=== PATIENT | male | born 1995 | race Caucasian/White ===

== ENCOUNTER → 2016-09-16 | Outpatient (CLI) | payer MEDICAID, OTHER ==
--- NOTE | 2016-09-16 15:52 | REP ---
MRI BRAIN WITHOUT AND WITH CONTRAST: HISTORY: Ataxia. CONTRAST: ProHance 12 mL. COMPARISON: 01/14/2011 There are no areas of abnormal signal intensity in the brain parenchyma. There is no intraparenchymal hemorrhage, infarct, mass or midline shift. There is no abnormal enhancement with contrast. A small developmental venous anomaly is present in the right parietal lobe. An arachnoid cyst is present in the left middle cranial fossa superior to the left parahippocampal gyrus and body of the hippocampus. There is mild mass effect on the left parahippocampal gyrus and body of the left hippocampus. There is posterior extension of the cyst into the left ambient cistern. The cyst measures 2 cm in transverse by 2.1 cm in AP x 1.1 cm in cephalocaudal dimensions and is unchanged in size compared to the previous study. There is no subdural fluid collection. The visualized sinuses are clear. IMPRESSION: 1. Left middle cranial fossa arachnoid cyst, unchanged in size compared to the previous study. 2. Small right parietal lobe developmental venous anomaly. Signed by Jesse Shankar MD 09/16/2016 03:53 P
--- NOTE | 2016-09-16 15:53 | REP ---
MR CERVICAL SPINE WITHOUT AND WITH CONTRAST: HISTORY: Ataxia. CONTRAST: ProHance 12 mL. There is no disc bulge or herniation. The spinal canal and the neural foramina are patent. The spinal cord is normal in signal intensity. There is no abnormal enhancement. Normal signal intensity is present in the cervical vertebral bodies. IMPRESSION: Normal study. Signed by Jesse Shankar MD 09/16/2016 03:54 P
--- NOTE | 2016-09-16 15:53 | REP ---
MRI THORACIC SPINE WITHOUT AND WITH CONTRAST: HISTORY: Ataxia. CONTRAST: ProHance 12 mL. The examination is limited secondary to motion. There is no disc bulge or herniation. The spinal canal and the neural foramina are patent. The spinal cord is normal in signal intensity. There is no abnormal enhancement. Normal signal intensity is present in the thoracic vertebral bodies. IMPRESSION: Normal study. Signed by Jesse Sahnkar MD 09/16/2016 03:53 P
== END ==
LOC: M RAD 12:48
PROVIDERS: ATTEND Psychiatry & Neurology Neurology
DX: R27.0 Ataxia, unspecified (principal)

== ENCOUNTER 2018-02-21 14:04 | Emergency (ER) | payer OTHER ==
[~2018-02-21] VITALS: Ht 165.1 cm; Wt 59.8 kg
[2018-02-21 14:56] LABS: BASO % 0.3 % (0.0-1.0); HEMATOCRIT 44.8 % (42.0-52.0); HEMOGLOBIN 16.1 g/dl (13.5-17.5); LYMPH % 10.8 % (24.0-44.0); MEAN CORPUSCULAR HEMOGLOBIN 29.8 pg (27.0-33.0); MEAN CORPUSCULAR HGB CONC 35.9 g/dl (32.0-36.5); MONO # 0.7 10^3/uL (0.0-0.8); MONO % 7.2 % (0.0-5.0); NEUTROPHILS # 7.8 10^3/uL (1.8-7.7); NEUTROPHILS % 81.4 % (36.0-66.0); PLATELET COUNT, AUTOMATED 334 10^3/uL (150-450); WHITE BLOOD COUNT 9.6 10^3/uL (4.0-10.0)
[2018-02-21] MEDS ORDERED: NS 1,000 ML IV ONE (15:15)
[2018-02-21] MEDS ORDERED: ONDANSETRON 4MG/2ML VIAL (J2405) IV ONE (15:15)
[2018-02-21 15:18] LABS: ALBUMIN 4.6 GM/DL (3.2-5.2); ALT/SGPT 23 U/L (12-78); AMYLASE 57 U/L (25-115); BILIRUBIN,DIRECT 0.2 MG/DL (0.0-0.2); BILIRUBIN,TOTAL 0.6 MG/DL (0.2-1.0); BLOOD UREA NITROGEN 17 MG/DL (7-18); CALCIUM LEVEL 9.6 MG/DL (8.5-10.1); CARBON DIOXIDE LEVEL 25 MEQ/L (21-32); CHLORIDE LEVEL 105 MEQ/L (98-107); CREATININE FOR GFR 1.16 MG/DL (0.70-1.30); GLOMERULAR FILTRATION RATE > 60.0 (>60); GLUCOSE, FASTING 98 MG/DL (70-100); LIPASE 47 U/L (73-393); POTASSIUM SERUM 4.2 MEQ/L (3.5-5.1); SODIUM LEVEL 140 MEQ/L (136-145)
--- NOTE | 2018-02-21 15:28 | REP ---
KUB, ONE VIEW: HISTORY: Abdominal pain. A small amount of air is present in small and large intestine. There are no air-fluid levels or dilated loops of intestine. There is no pneumoperitoneum. A mild amount of stool is present in the colon. There is spina bifida occulta of S1. IMPRESSION: 1. Nonspecific bowel gas pattern. 2. There is a mild amount of stool in the colon. Electronically Signed by Jesse Shankar MD 02/21/2018 04:01 P
[2018-02-21] MEDS ORDERED: ACETAMINOPHEN 325 MG TAB PO ONE (16:00)
[2018-02-21] MEDS ORDERED: ZOFR4TAB14 PO (17:04)
--- NOTE | 2018-02-21 18:10 | REPVR ---
EXAM: CT Head Without Contrast EXAM DATE/TIME: 02/21/2018 5:16 PM CLINICAL HISTORY: 22 years old, male; Pain; Headache; Headache not specified; Prior surgery; Surgery date: 6+ months; Additional info: Headache, HX glioblastoma (tx remotely) cysts of the brain TECHNIQUE: Axial computed tomography images of the head/brain without contrast. All CT scans at this facility use at least one of these dose optimization techniques: automated exposure control; mA and/or kV adjustment per patient size (includes targeted exams where dose is matched to clinical indication); or iterative reconstruction. COMPARISON: MRI-Brain W/O FOLL BY WITH 09/16/2016 1:04 PM FINDINGS: Brain: There is a CSF-density lesion in the left middle cranial fossa, with extension to the ambient cistern. These findings likely represent an arachnoid cyst and are unchanged from the prior MRI. There is no intracranial hemorrhage, edema or extra-axial fluid collection. Ventricles: Normal. No ventriculomegaly. Bones/joints: Unremarkable. Sinuses: Normal as visualized. No acute sinusitis. Mastoid air cells: Normal as visualized. No mastoid effusion. Soft tissues: Normal. IMPRESSION: 1. No acute intracranial abnormality. 2. Stable appearance of a presumed left middle cranial fossa arachnoid cyst. Electronically signed by: Kimi Grewal On 02/21/2018 18:09:50 PM
[2018-02-21 18:11] VITALS: BP 108/51
[2018-02-21] MEDS ORDERED: KETOROLAC 30 MG/ML VIAL (J1885) IV ONE (18:30)
--- NOTE | 2018-02-24 09:27 | ED PDOC ---
Post-Departure Follow-Up certified letter sent to pt re formal read of ct head. needs fu. obtain pcp name and fax if so. refer to [facility] and fax there is no pcp Brenton Sosa MD Feb 24, 2018 09:27
== END 2018-02-21 18:54 | disposition home or self-care (01) ==
LOC: M ED 14:04
DX: A08.4 Viral intestinal infection, unspecified (principal); R62.50 Unspecified lack of expected normal physiological development in childhood
CPT/HCPCS: 36415; 70450; 74018; 80048; 80076; 82150; 83690; 85025; 96374; 96375; 99284; J1885; J2405

== ENCOUNTER 2018-04-12 15:43 | Emergency (ER) | payer OTHER ==
[~2018-04-12] VITALS: Ht 165.1 cm; Wt 59.3 kg
[~2018-04-12 15:43] MED LIST: ZOFR4TAB14 PO
[2018-04-12 15:44] VITALS: BP 120/78
[2018-04-12] MEDS ORDERED: PROP40SO (15:48)
--- NOTE | 2018-04-12 16:48 | REP ---
Left thumb four view : There is no fracture or dislocation. Mineralization and joint spaces are normal. There are no calcifications or foreign bodies. Impression: Negative left . Electronically Signed by Jeffrey Moulton MD 04/12/2018 04:40 P
== END 2018-04-12 16:51 | disposition home or self-care (01) ==
LOC: M ED 15:43
DX: S61.002A Unspecified open wound of left thumb without damage to nail, initial encounter (principal); W26.8XXA Contact with other sharp object(s), not elsewhere classified, initial encounter; Y92.009 Unspecified place in unspecified non-institutional (private) residence as the place of occurrence of the external cause; Y93.9 Activity, unspecified; Y99.9 Unspecified external cause status

== ENCOUNTER 2018-10-22 10:05 | Emergency (ER) | payer OTHER ==
[~2018-10-22] VITALS: Ht 165.1 cm; Wt 63.3 kg
[~2018-10-22 10:05] MED LIST changes: +PROP40SO
[2018-10-22 10:06] VITALS: BP 134/74
[2018-10-22] MEDS ORDERED: VALP250S (10:11)
[2018-10-22 10:52] LABS: BASO % 0.2 % (0.0-1.0); HEMATOCRIT 40.4 % (42.0-52.0); HEMOGLOBIN 14.1 g/dl (13.5-17.5); LYMPH # 0.9 10^3/uL (1.5-5.0); MEAN CORPUSCULAR HEMOGLOBIN 29.8 pg (27.0-33.0); MEAN CORPUSCULAR HGB CONC 34.9 g/dl (32.0-36.5); MEAN CORPUSCULAR VOLUME 85.4 fl (80.0-96.0); MONO # 1.3 10^3/uL (0.0-0.8); MONO % 8.9 % (0.0-5.0); NEUTROPHILS # 12.6 10^3/uL (1.5-8.5); NEUTROPHILS % 84.5 % (36.0-66.0); PLATELET COUNT, AUTOMATED 290 10^3/uL (150-450); RED BLOOD COUNT 4.73 10^6/uL (4.30-6.10)
[2018-10-22 11:10] LABS: MONO SCRN NEGATIVE (NEGATIVE)
[2018-10-22] MEDS ORDERED: KEFL500C17 PO (11:13)
== END 2018-10-22 11:20 | disposition home or self-care (01) ==
LOC: M ED 10:05
DX: J03.90 Acute tonsillitis, unspecified (principal); Z79.899 Other long term (current) drug therapy

== ENCOUNTER → 2019-02-05 | Outpatient (REF) | payer OTHER, MEDICAID ==
[~2019-02-05] MED LIST changes: +KEFL500C17 PO; +VALP250S
[2019-02-05 11:49] LABS: BASO % 0.3 % (0.0-1.0); HEMATOCRIT 45.1 % (42.0-52.0); HEMOGLOBIN 14.9 g/dl (13.5-17.5); LYMPH # 1.3 10^3/uL (1.5-5.0); LYMPH % 19.4 % (24.0-44.0); MEAN CORPUSCULAR HEMOGLOBIN 28.7 pg (27.0-33.0); MEAN CORPUSCULAR VOLUME 86.9 fl (80.0-96.0); MONO # 0.7 10^3/uL (0.0-0.8); MONO % 10.1 % (0.0-5.0); NEUTROPHILS # 4.8 10^3/uL (1.5-8.5); NEUTROPHILS % 69.9 % (36.0-66.0); PLATELET COUNT, AUTOMATED 345 10^3/uL (150-450); RED BLOOD COUNT 5.19 10^6/uL (4.30-6.10); WHITE BLOOD COUNT 6.8 10^3/uL (4.0-10.0)
[2019-02-05 12:40] LABS: ALBUMIN 3.9 GM/DL (3.2-5.2); ALT/SGPT 26 U/L (12-78); BILIRUBIN,DIRECT < 0.1 MG/DL (0.0-0.2); BILIRUBIN,TOTAL 0.2 MG/DL (0.2-1.0); BLOOD UREA NITROGEN 9 MG/DL (7-18); CALCIUM LEVEL 9.8 MG/DL (8.5-10.1); CARBON DIOXIDE LEVEL 26 MEQ/L (21-32); CHLORIDE LEVEL 103 MEQ/L (98-107); CHOLESTEROL LEVEL 133 MG/DL (<200); CREATININE FOR GFR 0.94 MG/DL (0.70-1.30); GLOMERULAR FILTRATION RATE > 60.0 (>60); GLUCOSE, FASTING 73 MG/DL (70-100); HDL CHOLESTEROL 50 MG/DL (>40); LDL CHOLESTEROL 68 MG/DL (<100); NON-HDL-C 83 MG/DL; POTASSIUM SERUM 4.3 MEQ/L (3.5-5.1); SODIUM LEVEL 138 MEQ/L (136-145); TOTAL PROTEIN 7.5 GM/DL (6.4-8.2); TRIGLYCERIDES LEVEL 75 MG/DL (<150); VALPROIC ACID (DEPAKOTE) 70.3 UG/ML (50.0-100.0)
== END ==
LOC: M LABDRAW1 10:43
PROVIDERS: ATTEND Psychiatry & Neurology Psychiatry
DX: F63.81 Intermittent explosive disorder (principal); F79 Unspecified intellectual disabilities

== ENCOUNTER 2019-03-12 15:42 | Emergency (ER) | payer MEDICAID, OTHER ==
[~2019-03-12] VITALS: Ht 165.1 cm; Wt 72.7 kg
[2019-03-12 15:42] VITALS: BP 128/80
[~2019-03-12 15:42] MED LIST changes: -VALP250S; +VALP250S PO
[2019-03-12] MEDS ORDERED: ARIP1TAB PO (15:50)
[2019-03-12] MEDS ORDERED: CIPR-249 PO (17:37)
[2019-03-12] MEDS ORDERED: CIPROFLOXACIN 500 MG TAB PO ONE (18:00)
[2019-03-12 18:48] LABS: CHLAMYDIA DNA AMPLIFICATION NEGATIVE (NEGATIVE); GC DNA AMPLIFICATION NEGATIVE (NEGATIVE)
== END 2019-03-12 18:09 | disposition home or self-care (01) ==
LOC: M ED 15:42
DX: N30.90 Cystitis, unspecified without hematuria (principal); G90.2 Horner's syndrome

== ENCOUNTER → 2020-05-02 | Outpatient (CLI) | payer OTHER ==
[~2020-05-02] MED LIST changes: +ARIP1TAB PO; +CIPR-249 PO
[2020-05-02 17:25] LABS: ALBUMIN 3.9 GM/DL (3.2-5.2); ALT/SGPT 25 U/L (12-78); BILIRUBIN,TOTAL 0.3 MG/DL (0.2-1.0); BLOOD UREA NITROGEN 13 MG/DL (7-18); CALCIUM LEVEL 9.2 MG/DL (8.5-10.1); CARBON DIOXIDE LEVEL 28 MEQ/L (21-32); CHLORIDE LEVEL 106 MEQ/L (98-107); CREATININE FOR GFR 1.19 MG/DL (0.70-1.30); GLOMERULAR FILTRATION RATE > 60.0 (>60); GLUCOSE, FASTING 83 MG/DL (70-100); POTASSIUM SERUM 4.3 MEQ/L (3.5-5.1); SODIUM LEVEL 138 MEQ/L (136-145); TOTAL PROTEIN 6.9 GM/DL (6.4-8.2)
== END ==
LOC: M LAB 16:04
PROVIDERS: ATTEND Psychiatry & Neurology Neurology
DX: G93.0 Cerebral cysts (principal)

== ENCOUNTER → 2020-05-09 | Outpatient (CLI) | payer OTHER ==
--- NOTE | 2020-05-09 15:16 | REPVR ---
PROCEDURE INFORMATION: Exam: MR Head Without and With Contrast Exam date and time: 05/09/2020 2:25 PM Age: 24 years old Clinical indication: Other: HX malig junaid of endocrine glands, cerebral cysts TECHNIQUE: Imaging protocol: MR of the head without and with intravenous contrast. Contrast material: PROHANCE; Contrast volume: 14 ml; Contrast route: INTRAVENOUS (IV); COMPARISON: MRI-Brain W/O FOLL BY WITH 09/16/2016 1:04 PM FINDINGS: Brain: There is a stable 1.5 cm presumed arachnoid cyst interposed between the medial margin of the left temporal lobe and left cerebral peduncle, reported previously. There is a stable right parietal developmental venous anomaly, reported previously. Cerebral ventricles: Normal. No ventriculomegaly. Bones/joints: Unremarkable. Paranasal sinuses: Normal as visualized. No acute sinusitis. Mastoid air cells: Normal as visualized. No mastoid effusion. Orbital cavity: Unremarkable. Soft tissues: Unremarkable. IMPRESSION: 1. There is a stable 1.5 cm presumed arachnoid cyst interposed between the medial margin of the left temporal lobe and left cerebral peduncle, reported previously. 2. There is a stable right parietal developmental venous anomaly, reported previously. Electronically signed by: Miguel Harrison On 05/09/2020 15:16:42 PM
--- NOTE | 2020-05-09 15:26 | REPVR ---
PROCEDURE INFORMATION: Exam: MR Cervical Spine Without and With Contrast Exam date and time: 05/09/2020 2:25 PM Age: 24 years old Clinical indication: Neck pain; Additional info: HX malig junaid of endocrine glands, cerebral cysts TECHNIQUE: Imaging protocol: Multiplanar magnetic resonance images of the cervical spine without and with contrast. Contrast material: PROHANCE; Contrast volume: 14 ml; Contrast route: INTRAVENOUS (IV); COMPARISON: MRI-C SPINE W/O FOLL BY WITH 09/16/2016 1:20 PM FINDINGS: Vertebrae: Unremarkable. Spinal cord: Normal signal. No cord compression. C2-C3: No significant disc disease. No significant spinal stenosis. C3-C4: No significant disc disease. No significant spinal stenosis. C4-C5: No significant disc disease. No significant spinal stenosis. C5-C6: No significant disc disease. No significant spinal stenosis. C6-C7: No significant disc disease. No significant spinal stenosis. C7-T1: No significant disc disease. No significant spinal stenosis. Soft tissues: Unremarkable. Other findings: Examination is limited due to patient body habitus and technique. IMPRESSION: Examination is limited due to patient body habitus and technique. Within the limitations of this exam, no acute abnormalities are identified. Electronically signed by: Miguel Harrison On 05/09/2020 15:26:18 PM
== END ==
LOC: M PLARAD 09:55
PROVIDERS: ATTEND Psychiatry & Neurology Neurology
DX: G93.0 Cerebral cysts (principal); Z85.858 Personal history of malignant neoplasm of other endocrine glands

== ENCOUNTER → 2020-05-11 | Outpatient (CLI) | payer OTHER ==
--- NOTE | 2020-05-11 17:26 | REPVR ---
PROCEDURE INFORMATION: Exam: MR Lumbar Spine Without and With Contrast. Exam date and time: 05/11/2020 2:05 PM Age: 24 years old Clinical indication: Other: HX malig junaid of endocrine glands, cerebral cysts TECHNIQUE: Imaging protocol: Multiplanar magnetic resonance images of the lumbar spine without and with contrast. Contrast material: PROHANCE; Contrast volume: 14 ml; Contrast route: INTRAVENOUS (IV); COMPARISON: No relevant prior studies available. FINDINGS: Vertebrae: Unremarkable. Spinal cord: The conus medullaris is normal appearance at the L2 level. L1-L2: No significant disc disease. No significant spinal canal stenosis. No neural foraminal stenosis. L2-L3: No significant disc disease. No significant spinal canal stenosis. No neural foraminal stenosis. L3-L4: No significant disc disease. No significant spinal canal stenosis. No neural foraminal stenosis. L4-L5: No significant disc disease. No significant spinal canal stenosis. No neural foraminal stenosis. L5-S1: No significant disc disease. No significant spinal canal stenosis. No neural foraminal stenosis. Soft tissues: No epidural lesions. No abnormal contrast enhancement. IMPRESSION: Normal appearance of the lumbar spine. No evidence of metastatic disease. Electronically signed by: Stephanie Reyes On 05/11/2020 17:26:02 PM
--- NOTE | 2020-05-11 17:40 | REPVR ---
PROCEDURE INFORMATION: Exam: MR Thoracic Spine Without and With Contrast Exam date and time: 05/11/2020 2:02 PM Age: 24 years old Clinical indication: Other: HX malig junaid of endocrine glands, cerebral cysts TECHNIQUE: Imaging protocol: Multiplanar magnetic resonance images of the thoracic spine without and with contrast. Contrast material: PROHANCE; Contrast volume: 14 ml; Contrast route: INTRAVENOUS (IV); COMPARISON: MRI-T SPINE W/O FOLL WITH CON 09/16/2016 1:42 PM FINDINGS: Vertebrae: Unremarkable. Spinal cord: Normal signal. No cord compression. Discs/Spinal canal/Neural foramina: No significant disc disease. No significant spinal canal stenosis. Soft tissues: There is 1 focus of enhancement in the epidural soft tissues dorsal aspect of the thoracic spinal canal at the T11-T12 level series 12, image 9 which has the appearance of normal epidural fat on the accompanying axial series 13, image 17. IMPRESSION: Normal appearance of the thoracic spine. One focus of enhancement is seen in the dorsal epidural spinal canal which most likely represents normal adipose tissue however it does appear to enhance on the post gadolinium sequences and could be assessed at a follow-up. It is at the T11-T12. Electronically signed by: Stephanie Reyes On 05/11/2020 17:39:50 PM
== END ==
LOC: M PLARAD 10:08
PROVIDERS: ATTEND Psychiatry & Neurology Neurology
DX: G93.0 Cerebral cysts (principal); Z85.858 Personal history of malignant neoplasm of other endocrine glands

== ENCOUNTER → 2020-08-25 | Outpatient (CLI) | payer OTHER, MEDICAID ==
[~2020-08-25] MED LIST changes: +ARIP10TA32 PO; -ARIP1TAB PO
[2020-08-25 17:26] LABS: BASO % 0.4 % (0.0-1.0); HEMATOCRIT 44.8 % (42.0-52.0); HEMOGLOBIN 15.6 g/dl (13.5-17.5); LYMPH # 1.6 10^3/uL (1.5-5.0); MEAN CORPUSCULAR HEMOGLOBIN 28.9 pg (27.0-33.0); MEAN CORPUSCULAR HGB CONC 34.8 g/dl (32.0-36.5); MONO # 0.7 10^3/uL (0.0-0.8); MONO % 8.5 % (2.0-8.0); NEUTROPHILS # 5.6 10^3/uL (1.5-8.5); NEUTROPHILS % 70.7 % (36.0-66.0); PLATELET COUNT, AUTOMATED 275 10^3/uL (150-450); WHITE BLOOD COUNT 7.9 10^3/uL (4.0-10.0)
[2020-08-25 17:55] LABS: ALBUMIN 4.6 GM/DL (3.2-5.2); ALT/SGPT 26 U/L (12-78); BILIRUBIN,DIRECT 0.2 MG/DL (0.0-0.2); BILIRUBIN,TOTAL 0.7 MG/DL (0.2-1.0); BLOOD UREA NITROGEN 13 MG/DL (7-18); CALCIUM LEVEL 9.1 MG/DL (8.5-10.1); CARBON DIOXIDE LEVEL 27 MEQ/L (21-32); CHLORIDE LEVEL 103 MEQ/L (98-107); CHOLESTEROL LEVEL 143 MG/DL (<200); CHOLESTEROL RISK RATIO 3.108 (<5); CREATININE FOR GFR 1.19 MG/DL (0.70-1.30); GLOMERULAR FILTRATION RATE > 60.0 (>60); GLUCOSE, FASTING 89 MG/DL (70-100); HDL CHOLESTEROL 46 MG/DL (>40); LDL CHOLESTEROL 79 MG/DL (<100); NON-HDL-C 97 MG/DL; POTASSIUM SERUM 4.2 MEQ/L (3.5-5.1); SODIUM LEVEL 136 MEQ/L (136-145); TOTAL PROTEIN 7.9 GM/DL (6.4-8.2); TRIGLYCERIDES LEVEL 90 MG/DL (<150)
[2020-08-25 18:18] LABS: HEMOGLOBIN A1c 4.6 %
[2020-08-28 11:12] LABS: PROLACTIN 32.7 NG/ML (2.1-17.7)
== END ==
LOC: M PLALAB 14:12
PROVIDERS: ATTEND Psychiatry & Neurology Psychiatry
DX: F63.81 Intermittent explosive disorder (principal); F06.0 Psychotic disorder with hallucinations due to known physiological condition

== ENCOUNTER → 2020-11-14 | Outpatient (CLI) | payer OTHER, MEDICAID ==
[2020-11-14 18:22] LABS: VALPROIC ACID (DEPAKOTE) < 3.0 UG/ML (50.0-100.0)
== END ==
LOC: M LAB 16:54
PROVIDERS: ATTEND Psychiatry & Neurology Psychiatry
DX: G43.909 Migraine, unspecified, not intractable, without status migrainosus (principal)

== ENCOUNTER 2021-03-25 16:49 | Inpatient (IN) | payer OTHER, MEDICAID ==
[~2021-03-25] VITALS: Ht 172.7 cm; Wt 75.4 kg
[2021-03-25] MEDS: NS 1,000 ML IV SCH (17:50)
[2021-03-25 18:11] LABS: BASO % 0.2 % (0.0-1.0); HEMATOCRIT 41.5 % (42.0-52.0); HEMOGLOBIN 14.1 g/dl (13.5-17.5); LYMPH # 1.3 10^3/uL (1.5-5.0); MEAN CORPUSCULAR HEMOGLOBIN 28.3 pg (27.0-33.0); MEAN CORPUSCULAR VOLUME 83.2 fl (80.0-96.0); MONO # 0.7 10^3/uL (0.0-0.8); MONO % 5.4 % (2.0-8.0); NEUTROPHILS # 10.6 10^3/uL (1.5-8.5); NEUTROPHILS % 83.9 % (36.0-66.0); PLATELET COUNT, AUTOMATED 289 10^3/uL (150-450); RED BLOOD COUNT 4.99 10^6/uL (4.30-6.10); WHITE BLOOD COUNT 12.7 10^3/uL (4.0-10.0)
[2021-03-25 18:31] LABS: ALBUMIN 3.9 GM/DL (3.2-5.2); ALT/SGPT 21 U/L (12-78); BILIRUBIN,DIRECT < 0.1 MG/DL (0.0-0.2); BILIRUBIN,TOTAL 0.2 MG/DL (0.2-1.0); BLOOD UREA NITROGEN 13 MG/DL (7-18); CALCIUM LEVEL 9.1 MG/DL (8.5-10.1); CARBON DIOXIDE LEVEL 25 MEQ/L (21-32); CHLORIDE LEVEL 108 MEQ/L (98-107); CREATININE FOR GFR 0.87 MG/DL (0.70-1.30); GLOMERULAR FILTRATION RATE > 60.0 (>60); GLUCOSE, FASTING 108 MG/DL (70-100); POTASSIUM SERUM 4.2 MEQ/L (3.5-5.1); SODIUM LEVEL 140 MEQ/L (136-145); TOTAL PROTEIN 7.1 GM/DL (6.4-8.2)
[2021-03-25 18:36] LABS: VALPROIC ACID (DEPAKOTE) < 3.0 UG/ML (50.0-100.0)
[2021-03-25] MEDS ORDERED: RISP1SOL15 PO (19:31)
[2021-03-25] MEDS ORDERED: HOME MED LIST COMPLETE! XX SCH (19:35)
[2021-03-25 21:23] LABS: AMPHETAMINES LEVEL URINE NEGATIVE (NEGATIVE); BARBITURATES URINE NEGATIVE (NEGATIVE); BENZODIAZEPINES URINE NEGATIVE (NEGATIVE); CANNABINOIDS URINE NEGATIVE (NEGATIVE); COCAINE METABOLITE URINE NEGATIVE (NEGATIVE); METHADONE URINE NEGATIVE (NEGATIVE); OPIATES URINE NEGATIVE (NEGATIVE); PHENCYCLIDINE URINE NEGATIVE (NEGATIVE)
[2021-03-25] MEDS ORDERED: cefTRIAXone SOD 1 GM in D5W MINI-BAG PLUS 50 ML IV ONE (21:25)
[2021-03-25] MEDS ORDERED: MAALOX 30 ML SUSP *UDC PO PRN (22:15)
[2021-03-25] MEDS ORDERED: ACETAMINOPHEN TAB 650MG DOSE (2X325MG) PO PRN (22:15)
[2021-03-25] MEDS ORDERED: MOM 30ML SUSPENSION UDC PO PRN (22:15)
[2021-03-25] MEDS ORDERED: ISOVUE-370 76% 100ML VIAL As Ordered ONE (22:21)
[2021-03-25 22:59] LABS: THYROID STIMULATING HORMONE 0.299 uIU/ML (0.358-3.740)
[2021-03-25 23:22] LABS: C REACTIVE PROTEIN QUANTITATIV 0.39 MG/DL (0.00-0.30)
[2021-03-25 23:53] LABS: ERYTHROCYTE SEDIMENTATION RATE 7 mm/hr (0-15)
[2021-03-26] MEDS: NS 1,000 ML IV SCH ×4 (00:17→21:01)
[2021-03-26 06:26] LABS: BASO % 0.5 % (0.0-1.0); HEMATOCRIT 38.5 % (42.0-52.0); HEMOGLOBIN 12.8 g/dl (13.5-17.5); LYMPH # 2.1 10^3/uL (1.5-5.0); LYMPH % 24.7 % (24.0-44.0); MEAN CORPUSCULAR HEMOGLOBIN 28.5 pg (27.0-33.0); MEAN CORPUSCULAR HGB CONC 33.2 g/dl (32.0-36.5); MEAN CORPUSCULAR VOLUME 85.7 fl (80.0-96.0); MONO # 0.8 10^3/uL (0.0-0.8); MONO % 9.2 % (2.0-8.0); NEUTROPHILS # 5.6 10^3/uL (1.5-8.5); NEUTROPHILS % 65.2 % (36.0-66.0); PLATELET COUNT, AUTOMATED 276 10^3/uL (150-450); RED BLOOD COUNT 4.49 10^6/uL (4.30-6.10); WHITE BLOOD COUNT 8.6 10^3/uL (4.0-10.0)
[2021-03-26] MEDS: HEPARIN SOD (PORCINE) 5000UNITS/ML 1ML VIAL/SYRINGE SC SCH ×3 (06:26→21:00)
[2021-03-26 06:50] LABS: CK-MB VALUE MASS < 1.0 NG/ML (<3.6); CPK CREATINE PHOSPHOKINASE 200 U/L (39-308)
[2021-03-26 07:20] LABS: ALBUMIN 3.5 GM/DL (3.2-5.2); ALT/SGPT 18 U/L (12-78); BILIRUBIN,TOTAL 0.4 MG/DL (0.2-1.0); BLOOD UREA NITROGEN 11 MG/DL (7-18); CALCIUM LEVEL 8.9 MG/DL (8.5-10.1); CARBON DIOXIDE LEVEL 25 MEQ/L (21-32); CHLORIDE LEVEL 112 MEQ/L (98-107); CREATININE FOR GFR 1.02 MG/DL (0.70-1.30); GLOMERULAR FILTRATION RATE > 60.0 (>60); GLUCOSE, FASTING 94 MG/DL (70-100); POTASSIUM SERUM 3.9 MEQ/L (3.5-5.1); SODIUM LEVEL 144 MEQ/L (136-145); TOTAL PROTEIN 6.7 GM/DL (6.4-8.2)
[2021-03-26] MEDS: cefTRIAXone SOD 1 GM in D5W MINI-BAG PLUS 50 ML IV SCH (08:45)
[2021-03-26 12:06] VITALS: BP 120/70
[2021-03-26 16:28] VITALS: BP 131/73
[2021-03-26 17:54] VITALS: BP 139/80
[2021-03-26 20:00] VITALS: BP 127/78
[2021-03-26] MEDS: risperiDONE 1 MG/1 ML SOLN ORAL SYRINGE PO SCH (21:00)
[2021-03-27] VITALS: BP 126/65
[2021-03-27 04:00] VITALS: BP 122/70
[2021-03-27] MEDS: NS 1,000 ML IV SCH (05:25)
[2021-03-27] MEDS: HEPARIN SOD (PORCINE) 5000UNITS/ML 1ML VIAL/SYRINGE SC SCH (05:25)
[2021-03-27 07:26] VITALS: BP 128/73
[2021-03-27] MEDS: risperiDONE 1 MG/1 ML SOLN ORAL SYRINGE PO SCH (09:47)
[2021-03-27] MEDS ORDERED: CEFD300C41 PO (09:53)
[2021-03-27] MEDS: cefTRIAXone SOD 1 GM in D5W MINI-BAG PLUS 50 ML IV SCH (09:53)
[2021-03-27 10:34] LABS: BASO % 0.3 % (0.0-1.0); HEMATOCRIT 39.5 % (42.0-52.0); LYMPH # 1.4 10^3/uL (1.5-5.0); LYMPH % 21.4 % (24.0-44.0); MEAN CORPUSCULAR HGB CONC 32.9 g/dl (32.0-36.5); MEAN CORPUSCULAR VOLUME 85.1 fl (80.0-96.0); MONO # 0.5 10^3/uL (0.0-0.8); MONO % 7.7 % (2.0-8.0); NEUTROPHILS # 4.5 10^3/uL (1.5-8.5); NEUTROPHILS % 70.3 % (36.0-66.0); PLATELET COUNT, AUTOMATED 268 10^3/uL (150-450); RED BLOOD COUNT 4.64 10^6/uL (4.30-6.10); WHITE BLOOD COUNT 6.4 10^3/uL (4.0-10.0)
[2021-03-27 11:02] LABS: BLOOD UREA NITROGEN 5 MG/DL (7-18); CARBON DIOXIDE LEVEL 23 MEQ/L (21-32); CHLORIDE LEVEL 110 MEQ/L (98-107); GLOMERULAR FILTRATION RATE > 60.0 (>60); GLUCOSE, FASTING 100 MG/DL (70-100); POTASSIUM SERUM 3.7 MEQ/L (3.5-5.1); SODIUM LEVEL 139 MEQ/L (136-145)
== END 2021-03-27 14:48 | disposition home health service (06) | DRG 720 ==
LOC: M ED 16:49 → M ED INP 22:12 → ENRESERV 03-26 10:35 → M PCU 03-26 11:57
PROVIDERS: ADMIT Family Medicine; ATTEND Internal Medicine
DX: A41.9 Sepsis, unspecified organism (principal); N39.0 Urinary tract infection, site not specified; G25.0 Essential tremor; G43.909 Migraine, unspecified, not intractable, without status migrainosus; Z79.899 Other long term (current) drug therapy; Z20.822 Contact with and (suspected) exposure to COVID-19; G40.909 Epilepsy, unspecified, not intractable, without status epilepticus; B96.1 Klebsiella pneumoniae [K. pneumoniae] as the cause of diseases classified elsewhere

== ENCOUNTER → 2021-08-01 | Outpatient (CLI) | payer OTHER, MEDICAID ==
[~2021-08-01] MED LIST changes: +CEFD300C41 PO; +KEPP10002 PO; +LEVE15SO PO; +RISP1SOL15 PO
== END ==
LOC: M LAB 11:39
DX: G11.9 Hereditary ataxia, unspecified (principal)

== ENCOUNTER → 2022-01-28 | Outpatient (CLI) | payer OTHER, MEDICAID ==
[2022-01-28 15:55] LABS: BASO # 0.1 10^3/uL (0.0-0.2); BASO % 0.7 % (0.0-1.0); EOS % 0.1 % (0.0-3.0); HEMATOCRIT 42.6 % (42.0-52.0); HEMOGLOBIN 14.7 g/dl (13.5-17.5); LYMPH # 2.4 10^3/uL (1.5-5.0); LYMPH % 31.2 % (24.0-44.0); MEAN CORPUSCULAR HEMOGLOBIN 28.6 pg (27.0-33.0); MEAN CORPUSCULAR HGB CONC 34.5 g/dl (32.0-36.5); MEAN CORPUSCULAR VOLUME 82.9 fl (80.0-96.0); MONO # 0.9 10^3/uL (0.0-0.8); MONO % 11.4 % (2.0-8.0); NEUTROPHILS # 4.2 10^3/uL (1.5-8.5); NEUTROPHILS % 56.2 % (36.0-66.0); PLATELET COUNT, AUTOMATED 313 10^3/uL (150-450); RED BLOOD COUNT 5.14 10^6/uL (4.30-6.10); WHITE BLOOD COUNT 7.5 10^3/uL (4.0-10.0)
[2022-01-28 16:16] LABS: HEMOGLOBIN A1c 4.5 % (4.0-6.0)
[2022-01-28 16:24] LABS: ALBUMIN 3.7 G/DL (3.2-5.2); ALKALINE PHOSPHATASE 127 U/L (46-116); ALT/SGPT 25 U/L (7.0-40); AST/SGOT 19 U/L (<34); BILIRUBIN,DIRECT 0.1 MG/DL (<0.4); BILIRUBIN,TOTAL 0.3 MG/DL (0.3-1.2); BLOOD UREA NITROGEN 10 MG/DL (9-23); CARBON DIOXIDE LEVEL 25 MMOL/L (20-31); CHLORIDE LEVEL 105 MMOL/L (98-107); CHOLESTEROL LEVEL 130 MG/DL (<200); CHOLESTEROL RISK RATIO 3.09 (<5); CREATININE FOR GFR 1.02 MG/DL (0.70-1.30); GLOMERULAR FILTRATION RATE > 60.0 (>60); GLUCOSE, FASTING 85 MG/DL (60-100); LDL CHOLESTEROL 71.2 MG/DL (<100); NON-HDL-C 88 MG/DL; POTASSIUM SERUM 4.1 MMOL/L (3.5-5.1); SODIUM LEVEL 137 MMOL/L (136-145); TOTAL PROTEIN 6.5 G/DL (5.7-8.2); TRIGLYCERIDES LEVEL 84 MG/DL (<150)
[2022-01-28 16:26] LABS: PROLACTIN 30.01 NG/ML (2.1-17.7)
== END ==
LOC: M LAB 15:25
PROVIDERS: ATTEND Psychiatry & Neurology Psychiatry
DX: F63.81 Intermittent explosive disorder (principal); F06.0 Psychotic disorder with hallucinations due to known physiological condition

== ENCOUNTER → 2023-03-17 | Outpatient (CLI) | payer OTHER ==
[~2023-03-17] MED LIST changes: +CARA1TAB6 PO; +CEFD1CAP9 PO; -CEFD300C41 PO; +PROT1TAB2 PO
[2023-03-17 10:02] LABS: BASO # 0.1 10^3/uL (0.0-0.2); BASO % 0.7 % (0.0-1.0); EOS % 0.1 % (0.0-3.0); HEMATOCRIT 44.9 % (42.0-52.0); HEMOGLOBIN 15.9 g/dl (13.5-17.5); LYMPH # 2.1 10^3/uL (1.5-5.0); LYMPH % 27.5 % (24.0-44.0); MEAN CORPUSCULAR HEMOGLOBIN 28.8 pg (27.0-33.0); MEAN CORPUSCULAR HGB CONC 35.4 g/dl (32.0-36.5); MEAN CORPUSCULAR VOLUME 81.3 fl (80.0-96.0); MONO # 0.8 10^3/uL (0.0-0.8); MONO % 10.7 % (2.0-8.0); NEUTROPHILS # 4.6 10^3/uL (1.5-8.5); NEUTROPHILS % 60.7 % (36.0-66.0); PLATELET COUNT, AUTOMATED 353 10^3/uL (150-450); RED BLOOD COUNT 5.52 10^6/uL (4.30-6.10); WHITE BLOOD COUNT 7.6 10^3/uL (4.0-10.0)
[2023-03-17 10:54] LABS: ALBUMIN 4.1 G/DL (3.2-5.2); ALKALINE PHOSPHATASE 128 U/L (46-116); ALT/SGPT 24 U/L (7.0-40); AST/SGOT 12 U/L (<34); BILIRUBIN,TOTAL 0.6 MG/DL (0.3-1.2); BLOOD UREA NITROGEN 11 MG/DL (9-23); CALCIUM LEVEL 9.5 MG/DL (8.5-10.1); CARBON DIOXIDE LEVEL 24 MMOL/L (20-31); CHLORIDE LEVEL 106 MMOL/L (98-107); CHOLESTEROL LEVEL 154 MG/DL (<200); CHOLESTEROL RISK RATIO 3.27 (<5); CREATININE FOR GFR 1.12 MG/DL (0.70-1.30); GLOMERULAR FILTRATION RATE > 60.0 (>60); GLUCOSE, FASTING 88 MG/DL (60-100); LDL CHOLESTEROL 89.6 MG/DL (<100); SODIUM LEVEL 138 MMOL/L (136-145); TOTAL PROTEIN 7.3 G/DL (5.7-8.2); TRIGLYCERIDES LEVEL 87 MG/DL (<150)
== END ==
LOC: M RAD 08:19
PROVIDERS: ATTEND Physician Assistant
DX: R16.1 Splenomegaly, not elsewhere classified (principal); F79 Unspecified intellectual disabilities; Z85.858 Personal history of malignant neoplasm of other endocrine glands; G90.2 Horner's syndrome; Z13.220 Encounter for screening for lipoid disorders

== ENCOUNTER → 2023-04-23 | Outpatient (CLI) | payer OTHER ==
[2023-04-23 17:26] LABS: BASO % 0.1 % (0.0-1.0); HEMATOCRIT 45.1 % (42.0-52.0); HEMOGLOBIN 15.9 g/dl (13.5-17.5); LYMPH # 1.1 10^3/uL (1.5-5.0); LYMPH % 14.7 % (24.0-44.0); MEAN CORPUSCULAR HEMOGLOBIN 28.8 pg (27.0-33.0); MEAN CORPUSCULAR HGB CONC 35.3 g/dl (32.0-36.5); MEAN CORPUSCULAR VOLUME 81.7 fl (80.0-96.0); MONO # 0.9 10^3/uL (0.0-0.8); MONO % 12.5 % (2.0-8.0); NEUTROPHILS # 5.4 10^3/uL (1.5-8.5); NEUTROPHILS % 72.3 % (36.0-66.0); PLATELET COUNT, AUTOMATED 333 10^3/uL (150-450); RED BLOOD COUNT 5.52 10^6/uL (4.30-6.10); WHITE BLOOD COUNT 7.4 10^3/uL (4.0-10.0)
[2023-04-23 18:01] LABS: ALBUMIN 4.1 G/DL (3.2-5.2); ALKALINE PHOSPHATASE 122 U/L (46-116); ALT/SGPT 20 U/L (7.0-40); AST/SGOT 11 U/L (<34); BILIRUBIN,TOTAL 0.8 MG/DL (0.3-1.2); BLOOD UREA NITROGEN 17 MG/DL (9-23); CALCIUM LEVEL 8.9 MG/DL (8.5-10.1); CARBON DIOXIDE LEVEL 28 MMOL/L (20-31); CHLORIDE LEVEL 103 MMOL/L (98-107); CREATININE FOR GFR 1.18 MG/DL (0.70-1.30); GLOMERULAR FILTRATION RATE > 60.0 (>60); GLUCOSE, FASTING 89 MG/DL (60-100); POTASSIUM SERUM 3.6 MMOL/L (3.5-5.1); SODIUM LEVEL 140 MMOL/L (136-145); TOTAL PROTEIN 6.9 G/DL (5.7-8.2)
[2023-04-23 18:27] LABS: HIV 1&2 SCREEN NEGATIVE (NEGATIVE)
[2023-04-23 18:34] LABS: HEPATITIS B CORE ANTIBODY IGM NEGATIVE (NEGATIVE)
[2023-04-23 18:36] LABS: HEPATITIS C VIRUS ABY INDEX 0.05 INDEX (<0.8)
== END ==
LOC: M PLALAB 15:06
PROVIDERS: ATTEND Physician Assistant
DX: R16.1 Splenomegaly, not elsewhere classified (principal)

== ENCOUNTER → 2023-04-26 | Outpatient (REF) | payer OTHER | LOC: M LAB REF 11:10 | PROVIDERS: ATTEND Physician Assistant | DX: R10.2 Pelvic and perineal pain (principal); R16.1 Splenomegaly, not elsewhere classified; E88.89 Other specified metabolic disorders ==

== ENCOUNTER 2023-10-06 15:47 | Emergency (ER) | payer MEDICAID, OTHER ==
[~2023-10-06] VITALS: Ht 165.1 cm; Wt 78.1 kg
[2023-10-06] MEDS ORDERED: [UNRECOGNIZED DRUG - CODE] (16:03)
[2023-10-06] MEDS ORDERED: OMEP-173 (16:03)
[2023-10-06] MEDS: ONDANSETRON 4MG 2ML VIAL IV ONE (17:48)
[2023-10-06] MEDS: FAMOTIDINE 20MG/2ML VIAL IVP ONE (17:48)
[2023-10-06 17:50] LABS: BASO % 0.4 % (0.0-1.0); HEMATOCRIT 41.8 % (42.0-52.0); HEMOGLOBIN 14.2 g/dl (13.5-17.5); LYMPH # 1.3 10^3/uL (1.5-5.0); LYMPH % 26.7 % (24.0-44.0); MEAN CORPUSCULAR HEMOGLOBIN 28.6 pg (27.0-33.0); MEAN CORPUSCULAR VOLUME 84.1 fl (80.0-96.0); MONO # 0.5 10^3/uL (0.0-0.8); MONO % 10.5 % (2.0-8.0); NEUTROPHILS % 62.2 % (36.0-66.0); PLATELET COUNT, AUTOMATED 238 10^3/uL (150-450); RED BLOOD COUNT 4.97 10^6/uL (4.30-6.10); WHITE BLOOD COUNT 4.8 10^3/uL (4.0-10.0)
[2023-10-06] MEDS ORDERED: ISOVUE-370 76% 100ML VIAL As Ordered ONE (17:56)
[2023-10-06 18:14] LABS: ALBUMIN 3.9 G/DL (3.2-5.2); BILIRUBIN,DIRECT 0.2 MG/DL (<0.4); BILIRUBIN,TOTAL 0.4 MG/DL (0.3-1.2); TOTAL PROTEIN 6.9 G/DL (5.7-8.2)
[2023-10-06] MEDS ORDERED: ONDA-282 PO (19:22)
[2023-10-06] MEDS ORDERED: PEPC1TAB5 PO (19:22)
[2023-10-06 19:28] VITALS: BP 124/83; TEMP 99.4; O2SAT 97
== END 2023-10-06 19:30 | disposition home or self-care (01) ==
LOC: M ED 15:47
DX: K29.70 Gastritis, unspecified, without bleeding (principal); G40.909 Epilepsy, unspecified, not intractable, without status epilepticus; Z79.899 Other long term (current) drug therapy
CPT/HCPCS: 74177; 80047; 80076; 81001; 83690; 85025; 96374; 99284; J2405; Q9967; S0028

== ENCOUNTER → 2023-10-23 | Outpatient (CLI) | payer MEDICARE, MEDICAID ==
[~2023-10-23] MED LIST changes: +OMEP-173; +ONDA-282 PO; +PEPC1TAB5 PO; +PROHANCE 279.3MG/ML 15ML VIAL ONE; +[UNRECOGNIZED DRUG - CODE]
== END ==
LOC: M PLAIMG 08:56
PROVIDERS: ATTEND Physician Assistant
DX: R26.81 Unsteadiness on feet (principal); G93.0 Cerebral cysts; Z85.858 Personal history of malignant neoplasm of other endocrine glands
CPT/HCPCS: 70553; A9576

== ENCOUNTER → 2023-11-24 | Outpatient (CLI) | payer MEDICARE, MEDICAID ==
[~2023-11-24] MED LIST changes: -ARIP10TA32 PO; +ARIP10TA63 PO; -PROHANCE 279.3MG/ML 15ML VIAL ONE
== END ==
LOC: M RAD 06:58
PROVIDERS: ATTEND Physician Assistant
DX: R11.2 Nausea with vomiting, unspecified (principal)
CPT/HCPCS: 78264; A9541

== ENCOUNTER → 2024-05-25 | Outpatient (CLI) | payer MEDICARE, MEDICAID ==
[~2024-05-25] MED LIST changes: -VALP250S PO; +VALP250S26 PO
[2024-05-25 18:54] LABS: BASO % 0.5 % (0.0-1.0); EOS % 0.1 % (0.0-3.0); HEMATOCRIT 42.9 % (42.0-52.0); HEMOGLOBIN 14.9 g/dl (13.5-17.5); LYMPH # 2.3 10^3/uL (1.5-5.0); LYMPH % 26.2 % (24.0-44.0); MEAN CORPUSCULAR HEMOGLOBIN 29.3 pg (27.0-33.0); MEAN CORPUSCULAR HGB CONC 34.7 g/dl (32.0-36.5); MEAN CORPUSCULAR VOLUME 84.4 fl (80.0-96.0); MONO # 0.9 10^3/uL (0.0-0.8); NEUTROPHILS # 5.5 10^3/uL (1.5-8.5); PLATELET COUNT, AUTOMATED 322 10^3/uL (150-450); RED BLOOD COUNT 5.08 10^6/uL (4.30-6.10); WHITE BLOOD COUNT 8.8 10^3/uL (4.0-10.0)
[2024-05-25 19:13] LABS: HEMOGLOBIN A1c 4.6 % (4.0-6.0)
[2024-05-25 19:19] LABS: ALBUMIN 4.1 G/DL (3.2-5.2); ALKALINE PHOSPHATASE 129 U/L (40-129); ALT/SGPT 18 U/L (7.0-40); AST/SGOT 10 U/L (<34); BILIRUBIN,TOTAL 0.4 MG/DL (0.3-1.2); BLOOD UREA NITROGEN 18 MG/DL (9-23); CALCIUM LEVEL 9.5 MG/DL (8.5-10.1); CARBON DIOXIDE LEVEL 27 MMOL/L (20-31); CHLORIDE LEVEL 104 MMOL/L (98-107); CHOLESTEROL LEVEL 168 MG/DL (<200); CREATININE FOR GFR 1.02 MG/DL (0.70-1.30); GLOMERULAR FILTRATION RATE > 60.0 (>60); GLUCOSE, FASTING 75 MG/DL (60-100); HDL CHOLESTEROL 47.9 MG/DL (>40); LDL CHOLESTEROL 95.5 MG/DL (<100); NON-HDL-C 120.1 MG/DL; POTASSIUM SERUM 4.9 MMOL/L (3.5-5.1); SODIUM LEVEL 139 MMOL/L (136-145); TOTAL PROTEIN 7.2 G/DL (5.7-8.2); TRIGLYCERIDES LEVEL 123 MG/DL (<150)
== END ==
LOC: M PLALAB 13:16
PROVIDERS: ATTEND Psychiatry & Neurology Psychiatry
DX: F63.81 Intermittent explosive disorder (principal); F79 Unspecified intellectual disabilities; Z79.899 Other long term (current) drug therapy

== ENCOUNTER → 2024-09-30 | Outpatient (CLI) | payer MEDICARE, MEDICAID | LOC: M RAD 07:46 | PROVIDERS: ATTEND Nurse Practitioner Family | DX: R10.84 Generalized abdominal pain (principal) ==

== ENCOUNTER → 2024-10-27 | Outpatient (CLI) | payer MEDICARE, MEDICAID ==
[2024-10-27 18:51] LABS: PLATELET COUNT, AUTOMATED 371 10^3/uL (150-450)
[2024-10-27 18:57] LABS: IRON (FE) 32.0 UG/DL (65-175); PERCENT SATURATION 9.9 % (19.7-50.0)
[2024-10-27 18:59] LABS: FREE T4 1.37 NG/DL (0.89-1.76)
[2024-10-27 19:34] LABS: ESTIMATED AVERAGE GLUCOSE 85.0 MG/DL (60-110)
== END ==
LOC: M PLALAB 15:34
PROVIDERS: ATTEND Nurse Practitioner Family
DX: K31.84 Gastroparesis (principal); K92.0 Hematemesis; K59.09 Other constipation; Z79.899 Other long term (current) drug therapy

== ENCOUNTER → 2025-01-27 | Outpatient (REF) | payer MEDICARE, MEDICAID | LOC: M SFHCPLAZ 15:38 | PROVIDERS: ATTEND Family Medicine | DX: Z53.9 Procedure and treatment not carried out, unspecified reason (principal) ==

== ENCOUNTER → 2025-01-27 | Outpatient (CLI) | payer MEDICAID, MEDICARE ==
[2025-01-27 18:04] LABS: CALCIUM LEVEL 9.4 MG/DL (8.5-10.1); CARBON DIOXIDE LEVEL 30 MMOL/L (20-31); CHLORIDE LEVEL 103 MMOL/L (98-107); CREATININE FOR GFR 1.06 MG/DL (0.70-1.30); GLOMERULAR FILTRATION RATE > 90.0 (>60); POTASSIUM SERUM 4.2 MMOL/L (3.5-5.1); SODIUM LEVEL 140 MMOL/L (136-145)
== END ==
LOC: M PLALAB 15:53
PROVIDERS: ATTEND Family Medicine
DX: K92.0 Hematemesis (principal)